=== PATIENT | male | born 1965 | race Caucasian/White ===

== ENCOUNTER 2018-08-29 02:27 | Emergency (ER) | payer BC ==
[2018-08-29] MEDS ORDERED: Fentanyl 100 MCG/2 ML VIAL ONE (02:35)
[2018-08-29] MEDS ORDERED: Ondansetron HCl/PF 4 MG/2 ML Vial ONE ×2 (02:36→02:50)
[2018-08-29 02:59] LABS: #Basophils 0.1 thou/uL (0.0-0.2); #Lymphocytes 0.6 thou/uL (1.20-3.40); #Monocytes 0.7 thou/uL (0.11-0.59); #Neutrophils 10.4 thou/uL (1.40-6.50); %Basophils 0.7 % (0.0-1.0); %Eosinophils 0.3 % (0.0-10.0); %Lymphocytes 5.3 % (21.0-51.0); %Neutrophils 87.8 % (42.0-75.0); Hemoglobin 17.2 g/dL (14.0-18.0); Mean Corpuscular HGB CONC 33.9 g/dL (32.0-36.0); Mean Corpuscular Hemoglobin 32.2 pg (27.0-31.0); Mean Corpuscular Volume 95.2 fL (78.0-98.0); Mean Platelet Volume 6.1 fL (7.4-10.4); Platelet Count 259 thou/uL (130-400); RBC Distribution Width 12.7 % (11.5-14.5); Red Blood Cell (RBC) Count 5.33 mill/uL (4.70-6.10); White Blood Cell (WBC) Count 11.8 thou/uL (4.8-10.8)
[2018-08-29] MEDS ORDERED: Piperacillin/Tazobactam 3.375 GM VIAL ONE (03:03)
[2018-08-29 03:06] LABS: ALT (SGPT) 41 U/L (8-55); AST (SGOT) 29 U/L (5-34); Albumin 4.4 g/dL (3.5-5.0); Alkaline Phosphatase 64 U/L (40-150); Anion Gap 16 mmol/L (10-20); BUN (Urea Nitrogen) 19 mg/dL (8.4-25.7); Bilirubin, Total 0.7 mg/dL (0.2-1.2); Calc. Creatinine Clearance 0 mL/min (70-130); Calcium 9.3 mg/dL (7.8-10.44); Carbon Dioxide 19 mmol/L (22-29); Chloride 105 mmol/L (98-107); Estimated GFR-MDRD 69; Glucose 151 mg/dL (70-105); Lipase 18 U/L (8-78); Potassium 5.1 mmol/L (3.5-5.1); Protein, Total 7.4 g/dL (6.0-8.3); Sodium 135 mmol/L (136-145)
--- NOTE | 2018-08-29 11:09 | CT ---
PRELIMINARY REPORT/[facility]/EMERGENTY AFTER-HOURS PROCEDURE CT Abdomen and Pelvis With Intravenous Contrast EXAM DATE/TIME: Exam ordered 08/29/2018 2:58 AM CLINICAL HISTORY: 53 years old, male; Pain; Abdominal pain; Acute TECHNIQUE: Axial computed tomography images of the abdomen and pelvis with intravenous contrast. All CT scans at this facility use at least one of these dose optimization techniques: automated exposure control; mA and/or kV adjustment per patient size (includes targeted exams where dose is matched to clinical indication); or iterative reconstruction. Coronal reformatted images were created and reviewed. COMPARISON: No relevant prior studies available. FINDINGS: Lung bases: Unremarkable. No mass. No consolidation. ABDOMEN: Liver: Unremarkable. No mass. Gallbladder and bile ducts: Prior cholecystectomy. No ductal dilation. Pancreas: Unremarkable. No mass. No ductal dilation. Spleen: Unremarkable. No splenomegaly. Adrenals: Unremarkable. No mass. Kidneys and ureters: Unremarkable. No solid mass. No hydronephrosis. Stomach and bowel: Most of the mid and distal small bowel are distended with fluid and gas up to maxi mum 3.8 cm in caliber. The distal small bowel leading up to the ileocecal junction is also mildly dis tended but to a lesser extent. There is no discernible transition point. Findings are compatible with either ileus or partial distal small bowel obstruction. Gastroenteritis less likely but also possibl e. Surgical anastomosis of the sigmoid colon. Colonic diverticulosis. No diverticulitis. There may have been a prior gastroesophageal fundoplication. Stomach is distended, predominantly with gas. No bowel wall thickening. PELVIS: Appendix: Appendix not visualized. No evidence of appendicitis. Bladder: Unremarkable. No mass. Reproductive: Unremarkable as visualized. ABDOMEN and PELVIS: Intraperitoneal space: No pneumoperitoneum or abscess. No significant fluid collection. Bones/joints: Avascular necrosis of the left femoral head, without collapse. Right hip prosthesis. No acute fracture. No dislocation. Soft tissues: Unremarkable. Vasculature: Unremarkable. No abdominal aortic aneurysm. Lymph nodes: Unremarkable. No enlarged lymph nodes. IMPRESSION: 1. Most of the mid and distal small bowel are distended with fluid and gas up to maximum 3.8 cm in ca liber. The distal small bowel leading up to the ileocecal junction is also mildly distended but to a lesser extent. There is no discernible transition point. Findings are compatible with either ileus or partial distal small bowel obstruction. Gastroenteritis less likely but also possible. 2. Avascular necrosis of the left femoral head, without collapse. Thank you for allowing us to participate in the care of your patient. Dictated and Authenticated by: Henrique Dickinson MD 08/29/2018 4:19 AM Central Time ([place] & [place]) FINAL REPORT CT ABDOMEN AND PELVIS WITH CONTRAST: Date: 08-29-18 Technique: Spiral CT of the abdomen and pelvis was done with IV contrast only for abdominal pain. Axi al slices were acquired. Thin coronal reconstructions were done. FINDINGS: The major finding on the study is marked distention of the stomach and mild to moderate distention of the proximal small bowel. There is moderate to prominent distention of the mid to distal small bowel , up to about 4 cm in size. The small bowel, still fluid filled, assumes a more normal caliber near t he ileo thecal junction. The colon is not distended. A few diverticular are seen without evidence of diverticulitis. No free air or free fluid was seen. The lung bases show dependent atelectasis. The liver, spleen, pancreas, adrenal glands, kidneys and a bdominal aorta show no acute findings. There has been a prior cholecystectomy. CT of the pelvis shows some of the distended loops of bowel. There appears to have been prior surgery at the sigmoid colon level. No free air, free fluid, or inflammatory change was seen in the pelvis. Some prominent degenerative changes are seen in the facet joints of the lower lumbar spine. There has been a prior right hip replacement. The arthroplasty is noted. The left femoral head is apt ewhat modeled raising the question of avascular necrosis. IMPRESSION: Markedly distended stomach and many loops of distended fluid filled small bowel. Exact transition poi nt is not seen, but the degree of distention is impressive. At least a partial small bowel obstructio n is probable. There is a chance that this is just a very severe ileus, since an exact transition poi nt is not seen. The degree of distention is impressive enough that that is probably my second choice in the differential. 2. Findings in agreement with the preliminary reading by АННА. POS: HOME
--- NOTE | 2018-08-29 11:12 | RAD ---
PORTABLE CHEST: Date: 08-29-18 FINDINGS: The heart is normal in size. Crowding of markings and haziness in the bases is probably atelectasis a s the depth of inspiration is shallow. The stomach is markedly distended. No free air was seen. No lo bar consolidation was present. The trachea is midline. IMPRESSION: Shallow breath showing some minimal basilar atelectasis. Gaseous distention. POS: HOME
== END 2018-08-29 03:25 | disposition short-term general hospital (02) ==
LOC: BURERS 02:27
DX: K63.1 Perforation of intestine (nontraumatic) (principal); I10 Essential (primary) hypertension
CPT/HCPCS: 71045; 74177; 80053; 83605; 83690; 85025; 96374; 96375; J2405; J2543; J3010